=== PATIENT | female | born 1945 | race Caucasian/White ===

== ENCOUNTER 2024-12-21 08:14 | Inpatient (IN) | payer MEDICARE ==
[~2024-12-21] VITALS: Ht 157.5 cm; Wt 70.3 kg
[~2024-12-21 08:14] MED LIST: FENTANYL PF 100MCG/2ML AMPUL ONE; MIDAZOLAM HCL 2 MG/2ML VIAL ONE
[2024-12-21 09:43] LABS: CALCIUM, SERUM 9.1 mg/dL (8.5-10.1); CREATININE 0.8 mg/dL (0.6-1.3); POTASSIUM 4.2 mmol/L (3.5-5.1)
[2024-12-21 09:47] LABS: BASOPHILS % (AUTO) 0.2 % (0.0-2.0); EOSINOPHILS # (AUTO) 0.2 K/uL (0.0-0.7); EOSINOPHILS % (AUTO) 1.1 % (0.0-6.0); HEMATOCRIT 41 % (33-45); HEMOGLOBIN 13.9 g/dL (11.5-14.8); LYMPHOCYTES # (AUTO) 13.2 K/uL (0.8-4.8); LYMPHOCYTES % (AUTO) 77.5 % (20.0-44.0); MEAN CORPUSCULAR HEMOGLOBIN 31 PG (26.0-33.0); MEAN CORPUSCULAR HGB CONC 34 g/dl (31.0-36.0); MEAN CORPUSCULAR VOLUME 92 fL (82-100); MONOCYTES # (AUTO) 0.4 K/uL (0.1-1.30); MONOCYTES % (AUTO) 2.4 % (2.0-12.0); NEUTROPHILS # (AUTO) 3.2 K/uL (1.8-8.9); NEUTROPHILS % (AUTO) 18.8 % (43.0-81.0); PLATELET COUNT (AUTO) 201 K/uL (150-450); RED BLOOD CELL COUNT(AUTO) 4.46 MIL/uL (4.0-5.2); RED CELL DISTRIBUTION WIDTH 13.4 % (11.5-15.0)
[2024-12-21 09:48] LABS: INR 1.03 (0.91-1.10); PARTIAL THROMBOPLASTIN TIME 29.2 SEC (24.3-34.3); PROTHROMBIN TIME 10.9 SECS (9.2-11.1)
[2024-12-21] MEDS ORDERED: LIDOCAINE 0.5% HCL 50 ML VIAL ONE ×2 (09:52→09:54)
[2024-12-21] MEDS ORDERED: dexaMETHasone SOD PHOSPHATE 2 ML ONE (09:52)
[2024-12-21] MEDS ORDERED: VANCOMYCIN 1 GM VIAL ONE (09:52)
[2024-12-21] MEDS ORDERED: LIDOCAINE 0.5%-EPI 1:200,000 50 ML VIAL ONE (09:53)
[2024-12-21] MEDS ORDERED: LIDOCAINE 2% 50 ML MDV IJ ONE (09:56)
[2024-12-21] MEDS ORDERED: LIDOCAINE 2%-EPI 1:100,000 30 ML VIAL ONE ×2 (10:26→10:27)
[2024-12-21] MEDS ORDERED: HYDROMORPHONE 1 MG/1 ML DISP.SYRIN IV PRN ×2 (10:30→13:00)
[2024-12-21] MEDS ORDERED: ANESTHESIA TRAY IN PYXIS 1 EA TRAY MC ONE (11:39)
[2024-12-21 12:08] LABS: EOSINOPHILS % (MANUAL) 3 % (0-4); LYMPHOCYTES % (MANUAL) 65 % (16-48); MONOCYTES % (MANUAL) 1 % (0-11.0); NEUTROPHILS % (MANUAL) 23 (42-76); REACTIVE LYMPHOCYTES 8 % (0-0)
[2024-12-21 12:10] LABS: ANISOCYTOSIS 1+; PLATELET ESTIMATE ADEQUATE; STOMATOCYTES 1+
[2024-12-21 12:46] VITALS: BP 131/70; TEMP 98.2; O2SAT 99
[2024-12-21] MEDS ORDERED: ONDANSETRON HCL/PF 4 MG/2 ML VIAL IV PRN (13:00)
[2024-12-21] MEDS ORDERED: ACETAMINOPHEN 325 MG TABLET PO PRN (13:30)
[2024-12-21] MEDS ORDERED: FLUT16SP BNOSTRILS (13:47)
[2024-12-21] MEDS ORDERED: AMOX-430 PO (13:47)
[2024-12-21] MEDS ORDERED: TRAM50TA2 PO (13:47)
[2024-12-21] MEDS ORDERED: HYDR-4075 PO (13:47)
[2024-12-21] MEDS ORDERED: TEMA22.53 PO (13:47)
[2024-12-21] MEDS ORDERED: ONDANSETRON HCL/PF 4 MG/2 ML VIAL IVP PRN (17:00)
[2024-12-21] MEDS ORDERED: hydrALAZINE HCL IV 20 MG VIAL IV PRN (17:00)
[2024-12-21] MEDS: IV NS 0.9% 1,000 ML IV PRN (17:47)
[2024-12-21 20:00] VITALS: BP 125/65; TEMP 98.1; O2SAT 96
[2024-12-21] MEDS ORDERED: MENTHOL/CETYLPYRD (CEPACOL) 1 LOZ LOZENGE PO PRN (22:00)
[2024-12-21] MEDS: TEMAZEPAM 7.5 MG CAPSULE PO SCH (22:17)
[2024-12-21] MEDS: VANCOMYCIN 1 GM in IV D5W 250ml IV SCH (22:21)
[2024-12-21] MEDS ORDERED: TEMAZEPAM 7.5 MG CAPSULE PO PRN (22:30)
[2024-12-22 08:00] VITALS: BP 126/63; TEMP 98.3; O2SAT 100
== END 2024-12-22 11:15 | disposition home or self-care (01) | DRG 908 ==
LOC: DS 08:14 → MED 12:45
PROVIDERS: ADMIT Internal Medicine; ATTEND Internal Medicine
PROC: 0NSR04Z Reposition Maxilla with Internal Fixation Device, Open Approach (ICD-10-PCS; principal; 2024-12-21)
PROC: 0NUR0JZ Supplement Maxilla with Synthetic Substitute, Open Approach (ICD-10-PCS; 2024-12-21)
PROC: 0NUR07Z Supplement Maxilla with Autologous Tissue Substitute, Open Approach (ICD-10-PCS; 2024-12-21)
PROC: 0N5R0ZZ Destruction of Maxilla, Open Approach (ICD-10-PCS; 2024-12-21)
DX: T86.831 Bone graft failure (principal); S02.40CK Maxillary fracture, right side, subsequent encounter for fracture with nonunion; J32.0 Chronic maxillary sinusitis; Y83.2 Surgical operation with anastomosis, bypass or graft as the cause of abnormal reaction of the patient, or of later complication, without mention of misadventure at the time of the procedure; Y92.009 Unspecified place in unspecified non-institutional (private) residence as the place of occurrence of the external cause; X58.XXXD Exposure to other specified factors, subsequent encounter; I10 Essential (primary) hypertension; G47.00 Insomnia, unspecified; Z85.6 Personal history of leukemia
CPT/HCPCS: 36415; 71045-TC; 80048-TC; 85025-TC; 85610-TC; 85730-TC; A4223; A4338; C1713; G0378; J0330; J1100; J1885; J2250; J2405; J2704; J3010; J3370; J3490; J7030; J7060